=== PATIENT | female | born 1990 | race Caucasian/White ===

== ENCOUNTER 2016-11-08 10:25 | Emergency (ER) ==
--- NOTE | 2016-11-08 11:03 | PROVIDER DOCUMENTATION ---
HPI-Syncope/Dizziness - General Source: patient - History of Present Illness-Syncope/Dizzy Prior Episodes: reports: recent history Onset/Duration: reports: 3 days ago Timing: reports: still present Position/Activity at time of episode: reports: standing Recently Seen Here or By Another Healthcare Provider: Yes - Dizziness Severity in ED: reports: moderate Dizziness Related Current/Associated Symptoms: reports: nausea/vomiting Any recent trauma/injury?: reports: none Modifying Factors: improves with: nothing Patient usually:: reports: walks without assistance <Elda Costa - Last Filed: 11/08/16 11:05> <Emilie Martinez - Last Filed: 11/08/16 12:17> - General Chief Complaint: Dizziness Stated Complaint: NAUSEA Time Seen by Provider: 11/08/16 11:03 Allergies/Adverse Reactions: Patient Allergies Allergy/AdvReac Type Severity Reaction Status Date / Time No Known Allergies Allergy Verified 11/08/16 10:57 Home Medications: Home Medication List Medication Instructions Recorded Confirmed Last Taken Type Iron,Carbonyl/Vit C/Vit B12/FA 1 each PO DAILY 05/26/16 11/08/16 11/07/16 History [Iron 100 Plus Tablet] Ondansetron Odt [Zofran 4 mg Odt] 4 mg PO Q6H PRN PRN #15 tablet 11/08/16 Unknown Rx - History of Present Illness-Syncope/Dizzy Nature of Presenting Problem: Reports to er with cc of nausea,vomiting,dizziness,weak and fatigue past few days. Reports went to [facility] which told her that she was on the verge of needing a blood transfusion. Reports if she stands up a long time becomes dizzy. States been taking iron pills and is now having diarrhea. Reports poor appetite but is able to keep fluids down. Reports fever of 99.0 last night. ( Elda Costa) Review of Systems - Adult - REVIEW OF SYSTEMS - ADULT Constitutional: reports: fever. denies: chills, fatique Eyes: reports: no symptoms reported Ears, Nose, Mouth & Throat: denies: ear pain, sinus problem, throat pain Cardiovascular: reports: no symptoms reported Respiratory: denies: cough, shortness of breath, wheezing Gastrointestinal: reports: diarrhea, nausea. denies: abdominal pain, difficulty swallowing, frequent heartburn, vomiting Genitourinary: reports: no symptoms reported Musculoskeletal: reports: no symptoms reported Integumentary: reports: no symptoms reported Neurological: reports: dizziness/vertigo. denies: loss of balance, numbness, paresthesia, syncope, tremors Psychiatric: reports: no symptoms reported Endocrine: reports: no symptoms reported Hematologic/Lymphatic: reports: no symptoms reported Allergic/Immunologic: reports: no symptoms reported All Other Systems: Reviewed and Negative <CostaElda - Last Filed: 11/08/16 11:05> Past History - Adult - PAST MEDICAL HISTORY-ADULT Review of Records: reports: Nursing Assessment Review, Medications Reviewed Major Childhood Illnesses: reports: denies history - PRIOR SURGERIES/PROCEDURES Surgical/Procedure History: reports: appendectomy, - IMMUNIZATION STATUS Childhood Immunizations: See Nurse Assessment Flu Vaccine: See Nurse Assessment - FAMILY HISTORY Family History: reviewed, not pertinent - SOCIAL HISTORY Smoking: denies Substance Use: none/never <CostaElda - Last Filed: 11/08/16 11:05> - PAST MEDICAL HISTORY-ADULT Major Childhood Illnesses: reports: denies history Cardiovascular: reports: denies history Respiratory: reports: denies history Gastrointestinal: reports: denies history Obstetrical/Gynecological: reports: denies history Genitourinary: reports: denies history Musculoskeletal: reports: denies history Neurological: reports: denies history Endocrine/Immune: reports: denies history Other Conditions: reports: denies history - FAMILY HISTORY Family History: reviewed, not pertinent <Emilie Martinez - Last Filed: 11/08/16 12:17> Physical Exam-General - PHYSICAL EXAM-ADULT Initial Vital Signs Reviewed: Yes - CONSTITUTIONAL General Appearance: appears well, alert, no apparent distress - EYES Eyes: PERRL/EOMI, pink conjunctivae - HEAD, EARS, NOSE, MOUTH & THROAT HENMT: normocephalic/atraumatic, moist mucous membranes, TMs normal, pharynx normal. negative: frontal tenderness, maxillary tenderness - NECK Neck: non-tender, full range of motion, supple - RESPIRATORY Respiratory: chest non-tender, lungs clear, normal breath sounds - CARDIOVASCULAR Cardiovascular: normal peripheral pulses, regular rate, rhythm, no edema - GASTROINTESTINAL (ABDOMEN) Abdominal Exam: normal bowel sounds, non tender, soft - MUSCULOSKELETAL Back Exam: normal inspection, no CVA tenderness, no vertebral tenderness Extremity: normal gait, normal inspection - SKIN Integumentary: normal color, normal turgor, warm/dry - NEUROLOGIC Neurologic: grossly normal, no motor/sensory deficits - PSYCHIATRIC Psych/Mental Status: normal thought content, normal thought process <Emilie Martinez - Last Filed: 11/08/16 12:17> Progress <Elda Costa - Last Filed: 11/08/16 11:05> <LedyEmilie doeMirlande - Last Filed: 11/08/16 12:17> - PLAN OF CARE/RESULTS Progress/Plan/Lab Results: was seen at [facility] 2 days ago and was given meds for dizziness but pt has not taken any of the medication because she does not think the medication will work, presents to ER today for 2nd opinion. Discussed normal labs, no anemia, normal orthostatics and encouraged compliance with clear fluids to address the recent diarrhea as cause of her dizziness. Vital Signs Temp Pulse Pulse Pulse Pulse Resp BP 11/08/16 11:22 107 H 117 H 95 H 11/08/16 10:54 99.2 F 112 H 18 120/72 BP BP BP Pulse Ox 11/08/16 11:22 118/87 123/69 121/75 11/08/16 10:54 100 No Known Allergies Allergy (Verified 11/08/16 10:57) Iron,Carbonyl/Vit C/Vit B12/FA [Iron 100 Plus Tablet] 1 each PO DAILY 05/26/16 Laboratory 11/08/16 11/08/16 11/08/16 11:44 11:25 11:20 WBC 4.45 L RBC 4.52 Hgb 12.8 Hct 37.9 MCV 83.8 MCH 28.3 MCHC 33.8 RDW Std Deviation 13.5 Plt Count 208 MPV 11.2 H Immature Gran % (Auto) 0.2 Neut % (Auto) 70.2 Lymph % (Auto) 12.1 L [place] % (Auto) 17.3 H Eos % (Auto) 0.2 Baso % (Auto) 0.0 Immature Gran # (Auto) 0.01 Neut # (Auto) 3.12 Lymph # (Auto) 0.54 L [place] # (Auto) 0.77 H Eos # (Auto) 0.01 Baso # (Auto) 0.00 Sodium Potassium Chloride Carbon Dioxide Anion Gap BUN Creatinine Estimated GFR/1.73 m2 BUN/Creatinine Ratio Glucose POC Glucose 88 Calculated Osmolality Calcium Total Bilirubin AST ALT Alkaline Phosphatase Total Protein Albumin Globulin Albumin/Globulin Ratio Urine Source CLEAN CATCH Urine Color FRANCOIS Urine Clarity SL. CLOUDY A Urine pH 5.0 Ur Specific [place] 1.025 Urine Protein TRACE A Urine Ketones NEGATIVE Urine Blood NEGATIVE Urine Nitrite NEGATIVE Urine Bilirubin NEGATIVE Urine Urobilinogen NORMAL Urine Microscopic RBC <10 Urine WBC NEGATIVE Urine Microscopic WBC <10 Ur Epithelial Cells >10 A Urine Glucose NEGATIVE 11/08/16 11:20 WBC RBC Hgb Hct MCV MCH MCHC RDW Std Deviation Plt Count MPV Immature Gran % (Auto) Neut % (Auto) Lymph % (Auto) [place] % (Auto) Eos % (Auto) Baso % (Auto) Immature Gran # (Auto) Neut # (Auto) Lymph # (Auto) [place] # (Auto) Eos # (Auto) Baso # (Auto) Sodium 136 Potassium 3.3 L Chloride 104 Carbon Dioxide 21 L Anion Gap 10 BUN 13 Creatinine 0.5 Estimated GFR/1.73 m2 > 60 BUN/Creatinine Ratio 26 Glucose 104 POC Glucose Calculated Osmolality 272 Calcium 9.2 Total Bilirubin 0.40 AST 26 ALT 21 Alkaline Phosphatase 69 Total Protein 7.4 Albumin 4.2 Globulin 3.0 Albumin/Globulin Ratio 1.0 Urine Source Urine Color Urine Clarity Urine pH Ur Specific [place] Urine Protein Urine Ketones Urine Blood Urine Nitrite Urine Bilirubin Urine Urobilinogen Urine Microscopic RBC Urine WBC Urine Microscopic WBC Ur Epithelial Cells Urine Glucose Orders Category Date Time Status ED: Orthostatic Vital Signs (E as directed Care 11/08/16 11:10 Active ED: Urine Bedside ORDERED Care 11/08/16 11:11 Active Saline Loc NOW Care 11/08/16 11:10 Active CBC WITH DIFF [HEME] Stat Lab 11/08/16 11:20 Completed COMPREHENSIVE METABOLIC PANEL [CHEM] Stat Lab 11/08/16 11:[address] W/POSS RFLX CULT [URINALYSIS] Stat Lab 11/08/16 11:25 Completed 0.9% Sodium Chloride Inj [Ns] 1,000 ml Med 11/08/16 11:10 Discontinued IV 999 mls/hr Ondansetron [Zofran] Med 11/08/16 11:10 Discontinued 4 mg IV NOW ONE Potassium Chloride E.r. [Klor-Con] Med 11/08/16 11:46 Discontinued 10 meq PO NOW ONE Laboratory Tests 11/08/16 11/08/1611/08/17 11:20 11:20 11:25 WBC 4.45 L RBC 4.52 Hgb 12.8 Hct 37.9 MCV 83.8 MCH 28.3 MCHC 33.8 RDW Std Deviation 13.5 Plt Count 208 MPV 11.2 H Immature Gran % (Auto) 0.2 Neut % (Auto) 70.2 Lymph % (Auto) 12.1 L [place] % (Auto) 17.3 H Eos % (Auto) 0.2 Baso % (Auto) 0.0 Immature Gran # (Auto) 0.01 Neut # (Auto) 3.12 Lymph # (Auto) 0.54 L [place] # (Auto) 0.77 H Eos # (Auto) 0.01 Baso # (Auto) 0.00 Sodium 136 Potassium 3.3 L Chloride 104 Carbon Dioxide 21 L Anion Gap 10 BUN 13 Creatinine 0.5 Estimated GFR/1.73 m2 > 60 BUN/Creatinine Ratio 26 Glucose 104 POC Glucose Calculated Osmolality 272 Calcium 9.2 Total Bilirubin 0.40 AST 26 ALT 21 Alkaline Phosphatase 69 Total Protein 7.4 Albumin 4.2 Globulin 3.0 Albumin/Globulin Ratio 1.0 Urine Source CLEAN CATCH Urine Color FRANCOIS Urine Clarity SL. CLOUDY A Urine pH 5.0 Ur Specific [place] 1.025 Urine Protein TRACE A Urine Ketones NEGATIVE Urine Blood NEGATIVE Urine Nitrite NEGATIVE Urine Bilirubin NEGATIVE Urine Urobilinogen NORMAL Urine Microscopic RBC <10 Urine WBC NEGATIVE Urine Microscopic WBC <10 Ur Epithelial Cells >10 A Urine Glucose NEGATIVE 11/08/16 11:44 WBC RBC Hgb Hct MCV MCH MCHC RDW Std Deviation Plt Count MPV Immature Gran % (Auto) Neut % (Auto) Lymph % (Auto) [place] % (Auto) Eos % (Auto) Baso % (Auto) Immature Gran # (Auto) Neut # (Auto) Lymph # (Auto) [place] # (Auto) Eos # (Auto) Baso # (Auto) Sodium Potassium Chloride Carbon Dioxide Anion Gap BUN Creatinine Estimated GFR/1.73 m2 BUN/Creatinine Ratio Glucose POC Glucose 88 Calculated Osmolality Calcium Total Bilirubin AST ALT Alkaline Phosphatase Total Protein Albumin Globulin Albumin/Globulin Ratio Urine Source Urine Color Urine Clarity Urine pH Ur Specific [place] Urine Protein Urine Ketones Urine Blood Urine Nitrite Urine Bilirubin Urine Urobilinogen Urine Microscopic RBC Urine WBC Urine Microscopic WBC Ur Epithelial Cells Urine Glucose (ThiotEmilie M.) Departure <Elda Costa - Last Filed: 11/08/16 11:05> - Departure Time of Disposition Order: 12:14 Certified Medical Emergency: Emergent <Emilie Martinez - Last Filed: 11/08/16 12:17> - Departure DIAGNOSIS: Dizziness Diarrhea Qualifiers: Diarrhea type: unspecified type Qualified Code(s): R19.7 - Diarrhea, unspecified Disposition: HOME 01 Condition: Good Additional Instructions: Take current medication prescribed by [facility] for dizziness as needed. Follow up with Dr. Pratt as needed for continued dizziness. ED Follow Up Instructions: You have been treated by a care provider in the Emergency Department. These instructions are being provided to you so you can have an understanding of how to care for yourself upon discharge. Upon discharge from the Emergency Department, you are responsible for making arrangements for follow-up care by a physician of your choice. Take all prescribed medications as directed. Return to the Emergency Department immediately for any new or worsening symptoms. You may call the Physician Referral phone number at [phone] to obtain a list of Physicians who are taking new patients. Prescriptions: Ondansetron Odt [Zofran 4 mg Odt] 4 mg PO Q6H PRN PRN #15 tablet PRN Reason: Nausea Referrals: None,PCP [Primary Care Provider] - Fabian Pratt MD [STAFF PHYSICIAN] - Attestation - Scribe Verification/Attestation Scribe:: Elda Costa Acting as Scribe for:: Emilie Martinez Scribe documention review:: This chart was documented by a scribe and accurately reflects the service the provider performed and the decisions made by the provider. <Elda Costa - Last Filed: 11/08/16 11:05> - Physician/ KG Attestation Patient care was provided by Advanced Practice Provider:: Yes Advanced Practice Provider:: Emilie Martinez Advanced Practice Provider documentation review:: The Mid-level provider documentation, treatment plan and medical decision making was reviewed by the physician who agrees with all treatment and medical decision making by the MLP. <Emilie Martinez - Last Filed: 11/08/16 12:17> Physician Attestation
[2016-11-08] MEDS ORDERED: ZOFRAN IV ONE (11:10)
[2016-11-08] MEDS ORDERED: NS 1,000 ML IV ONE (11:10)
[2016-11-08 11:22] LABS: MANUAL DIFF NEEDED? NO
[2016-11-08 11:26] LABS: EOS# 0.01 X1000 (0.0-0.7); EOS% 0.2 % (0.0-10.0); HEMATOCRIT 37.9 % (37.0-47.0); HEMOGLOBIN 12.8 g/dL (12.0-16.0); IMM GRAN# 0.01 X1000 (0.0-0.04); IMM GRAN% 0.2 % (0.0-0.5); LYMPH# 0.54 X1000 (1.2-3.4); LYMPH% 12.1 % (20.5-51.1); MCH 28.3 PG (27-31); MCHC 33.8 g/dL (33-37); MCV 83.8 FL (81-99); MONO# 0.77 X1000 (0.11-0.59); MONO% 17.3 % (1.7-9.3); MPV 11.2 FL (7.4-10.4); NEUT% 70.2 % (42.2-75.2); PLT 208 X1000 (130-400); RBC 4.52 XMIL (4.2-5.4)
[2016-11-08 11:40] LABS: AGAP 10; ALBUMIN 4.2 g/dL (3.5-5.0); ALKALINE PHOSPHATASE 69 U/L (32-104); BUN 13 mg/dL (8-22); CALCIUM 9.2 mg/dL (8.8-10.2); CHLORIDE 104 mmol/L (98-107); COSMO 272; GOT 26 U/L (10-30); GPT 21 U/L (10-36); POTASSIUM 3.3 mmol/L (3.5-5.1); SODIUM 136 mmol/L (136-145); TCO2 21 mmol/L (25-35); TOTAL PROTEIN 7.4 g/dL (6.3-8.3)
[2016-11-08 11:46] LABS: URINE CULTURE PL NEEDED? NO; URINE SOURCE CLEAN CATCH
[2016-11-08] MEDS ORDERED: KLOR-CON PO ONE (11:46)
[2016-11-08 11:52] LABS: BILIRUBIN URINE NEGATIVE (NEGATIVE); BLOOD URINE NEGATIVE (NEGATIVE); CLARITY SL. CLOUDY (CLEAR); COLOR AMBER; GLUCOSE URINE NEGATIVE (NEGATIVE); LEUKOCYTES URINE NEGATIVE (NEGATIVE); NITRITE URINE NEGATIVE (NEGATIVE); PROTEIN URINE TRACE mg/dL (NEGATIVE); SP GRAVITY URINE 1.025; UROBILINOGEN URINE NORMAL
[2016-11-08 12:04] LABS: URINE EPITHELIAL CELLS >10 /HPF (<10); URINE RBC <10 /HPF (<10); URINE WBC <10 /HPF (<10)
[2016-11-08 12:37] VITALS: BP 117/68
== END 2016-11-08 13:05 | disposition home or self-care (01) ==
LOC: P.ED 10:25
DX: R19.7 Diarrhea, unspecified (principal); R42 Dizziness and giddiness; R11.2 Nausea with vomiting, unspecified; R50.9 Fever, unspecified
CPT/HCPCS: 80053; 81001; 82948; 85025; 96361; 96374; J2405; J7030